=== PATIENT | male | born 1985 | race Caucasian/White ===

== ENCOUNTER 2018-01-15 14:45 | Emergency (ER) | payer BC ==
[~2018-01-15] VITALS: Ht 177.8 cm; Wt 83.2 kg
[2018-01-15 16:05] VITALS: BP 152/91
== END 2018-01-15 17:47 | disposition left against medical advice (07) ==
LOC: ER 16:18
DX: F41.9 Anxiety disorder, unspecified (principal); R00.0 Tachycardia, unspecified
CPT/HCPCS: 93005; 99283